=== PATIENT | female | born 1960 | race Hispanic/Latino ===

== ENCOUNTER 2023-09-06 09:58 | Day surgery (SDC) | payer MEDICARE, OTHER ==
[2023-09-06] VITALS (17 sets, daily range): BP systolic 104–128; BP diastolic 58–72; PULSE 68–93; RESP 14–18
[~2023-09-06] VITALS: Ht 154.9 cm; Wt 93.8 kg
[2023-09-06 10:55] LABS: BASOPHILS # (AUTO) 0.06 K/uL (0.00-0.20); BASOPHILS % (AUTO) 0.9 % (0.0-5.0); EOSINOPHILS # (AUTO) 0.08 K/uL (0.00-0.70); EOSINOPHILS % (AUTO) 1.2 % (0.0-8.0); HEMATOCRIT 43.2 % (36-48); IMMATURE GRANULOCYTE ABSOLUTE 0.03 K/uL (0-1); LYMPHOCYTES # (AUTO) 1.8 K/uL (1.0-4.8); LYMPHOCYTES % (AUTO) 26.9 % (21.0-51.0); MEAN CORPUSCULAR HEMOGLOBIN 30.7 pg (27.0-33.0); MEAN CORPUSCULAR HGB CONC 32.9 g/dL (32.0-36.0); MEAN CORPUSCULAR VOLUME 93.3 fL (79-99); MONOCYTES # (AUTO) 0.5 K/uL (0.1-1.0); MONOCYTES % (AUTO) 7.7 % (3.0-13.0); NEUTROPHILS # (AUTO) 4.2 K/uL (1.8-7.7); NEUTROPHILS % (AUTO) 62.9 % (40.0-77.0); PLATELET COUNT (AUTO) 310 K/uL (130-400); RED BLOOD CELL COUNT(AUTO) 4.63 MIL/uL (4.00-5.50); RED CELL DISTRIBUTION WIDTH 12.5 % (11.0-15.5); WHITE BLOOD COUNT (AUTO) 6.7 K/uL (4.8-10.8)
[2023-09-06] MEDS ORDERED: ROCURONIUM BROMIDE 10MG/1ML 5ML VL ONE (11:03)
[2023-09-06] MEDS ORDERED: LIDOCAINE HCL 2% JELLY 5 ML ONE (11:03)
[2023-09-06] MEDS ORDERED: PROPOFOL 10 MG/ML 20ML VIAL IV ONE (11:03)
[2023-09-06] MEDS ORDERED: MIDAZOLAM HCL 1 MG/ML 2ML VIAL ONE (11:03)
[2023-09-06] MEDS ORDERED: FENTANYL CITRATE PF 50 MCG/1 ML 2ML VIAL ONE (11:03)
[2023-09-06] MEDS ORDERED: LIDOCAINE PF 100MG/5ML (2%) SYRINGE 5ML ONE (11:04)
[2023-09-06] MEDS ORDERED: ROPIVACAINE 0.5% 5MG/ML 30ML ONE (11:06)
[2023-09-06] MEDS ORDERED: ACETAMINOPHEN 1,000 MG/100 ML VIAL IV ONE (11:08)
[2023-09-06 11:12] LABS: ALBUMIN 3.9 g/dL (3.5-5.0)
[2023-09-06] MEDS: CEFAZOLIN SODIUM 2 GM VIAL ONE (11:41)
[2023-09-06] MEDS: LACTATED RINGERS 1000ML 1,000 ML IV ONE (11:41)
[2023-09-06] MEDS ORDERED: ACET-2079 PO (11:41)
[2023-09-06] MEDS ORDERED: ONDANSETRON 4MG INJ ONE (11:45)
[2023-09-06] MEDS ORDERED: DEXAMETHASONE SOD PHOSPHATE 10MG/ML 1ML VIAL ONE (11:46)
[2023-09-06] MEDS: CEFAZOLIN SODIUM 2 GM VIAL IVPB ONE (11:55)
[2023-09-06] MEDS ORDERED: EPHEDRINE SULFATE 50 MG/ML AMPULE ONE (12:20)
[2023-09-06] MEDS ORDERED: GLYCOPYRROLATE 0.2 MG/ML 5 ML VIAL ONE (14:21)
[2023-09-06] MEDS ORDERED: NEOSTIGMINE METHYLSULFATE 1MG/ML IV ONE (14:21)
[2023-09-06] MEDS ORDERED: HYDR-4060 PO (15:20)
== END 2023-09-06 16:50 | disposition home or self-care (01) ==
LOC: DAH 09:58
PROVIDERS: ATTEND Student in an Organized Health Care Education/Training Program
DX: S52.032A Displaced fracture of olecranon process with intraarticular extension of left ulna, initial encounter for closed fracture (principal); S52.132A Displaced fracture of neck of left radius, initial encounter for closed fracture; S52.122A Displaced fracture of head of left radius, initial encounter for closed fracture; I25.10 Atherosclerotic heart disease of native coronary artery without angina pectoris; E66.9 Obesity, unspecified; Z90.710 Acquired absence of both cervix and uterus; Z90.49 Acquired absence of other specified parts of digestive tract; Z68.35 Body mass index [BMI] 35.0-35.9, adult; W19.XXXA Unspecified fall, initial encounter; Y93.89 Activity, other specified; Y92.89 Other specified places as the place of occurrence of the external cause; Y99.8 Other external cause status
CPT/HCPCS: 64417; 24685; 24366; 82040; 85025; 84134; 86140; 36415; 73080; 87641; C1713 ×9; C1776 ×2; A4663; A4565; A4649 ×4; J7120; J3010; J1100; J3490 ×3; J2001; J2250; J2704; J2405; J2710; J2795; J0690 ×2; G0168; A4930; A4215; A4223; A4222; A4221